=== PATIENT | female | born 2000 | race Caucasian/White ===

== ENCOUNTER 2018-02-14 22:28 | Emergency (ER) | payer OTHER ==
[~2018-02-14] VITALS: Ht 154.9 cm; Wt 40.8 kg
[2018-02-15 00:32] LABS: Basophils # (auto) 0 uL; Basophils % (auto) 0.1 % (0.0-2.0); Eosinophils # (auto) 0 uL; Hematocrit 33.2 % (36.0-46.0); Hemoglobin 10.8 g/dL (12.2-16.2); Lymphocytes # (auto) 1.4 uL; Lymphocytes % (auto) 21.9 % (10.0-50.0); Mean Corpuscular Hemoglobin 30.3 pg (28.0-32.0); Mean Corpuscular Hgb Conc. 32.5 g/dL (32.0-36.0); Mean Corpuscular Volume 93.2 fL (80.0-100.0); Monocytes # (auto) 0.4 uL; Monocytes % (auto) 5.5 % (0.0-12.0); Neutrophils # (auto) 4.7 uL; Neutrophils % (auto) 72.5 % (37.0-80.0); Nucleated Red Blood Cells % 0.1 %; Platelet Count (auto) 184 10^3/uL (140-450); Red Blood Cells 3.56 10^6/uL (4.0-5.20); Red Cell Distribution Width 16.5 % (11.8-14.3); White Blood Cell 6.5 10^3/uL (4.4-10.8)
[2018-02-15 00:48] LABS: Albumin 2.6 g/dL (3.4-5.0); BUN/Creatinine Ratio 28.8; Calcium 8.4 mg/dL (8.5-10.1); Potassium 3.6 mmol/L (3.5-5.1)
[2018-02-15 01:00] LABS: Bilirubin, Total 0.4 mg/dL (0.2-1.0); Total Protein 7.1 g/dL (6.4-8.2)
[2018-02-15] MEDS: LORazepam 2MG/ML-1ML VIAL ONE (01:34)
[2018-02-15] MEDS: LORazepam 2MG/ML-1ML VIAL IM ONE (01:36)
[2018-02-15 03:30] VITALS: BP 95/51
[2018-02-15] MEDS: LEVETIRACETAM 500 MG TAB PO ONE (04:40)
== END 2018-02-15 05:25 | disposition home or self-care (01) ==
LOC: EDBD 22:28 → ER 22:32
CPT/HCPCS: 36415 ×2; 70450 ×2; 80053 ×2; 85025 ×2; 96372 ×2; 99284; J2060

== ENCOUNTER 2018-02-16 21:57 | Emergency (ER) | payer OTHER ==
[~2018-02-16] VITALS: Ht 160 cm; Wt 39.9 kg
[2018-02-16 23:17] LABS: Basophils # (auto) 0 uL; Basophils % (auto) 0.1 % (0.0-2.0); Eosinophils # (auto) 0 uL; Hematocrit 33.2 % (36.0-46.0); Hemoglobin 10.9 g/dL (12.2-16.2); Lymphocytes # (auto) 0.8 uL; Lymphocytes % (auto) 14.5 % (10.0-50.0); Mean Corpuscular Hemoglobin 30.5 pg (28.0-32.0); Mean Corpuscular Hgb Conc. 32.7 g/dL (32.0-36.0); Mean Corpuscular Volume 93.1 fL (80.0-100.0); Monocytes # (auto) 0.2 uL; Monocytes % (auto) 4.7 % (0.0-12.0); Neutrophils # (auto) 4.3 uL; Neutrophils % (auto) 80.7 % (37.0-80.0); Nucleated Red Blood Cells % 0.2 %; Platelet Count (auto) 172 10^3/uL (140-450); Red Blood Cells 3.57 10^6/uL (4.0-5.20); Red Cell Distribution Width 16.5 % (11.8-14.3); White Blood Cell 5.3 10^3/uL (4.4-10.8)
[2018-02-16 23:40] LABS: Albumin 2.9 g/dL (3.4-5.0); BUN/Creatinine Ratio 35.5; Calcium 8.6 mg/dL (8.5-10.1); Potassium 3.1 mmol/L (3.5-5.1)
[2018-02-16 23:43] LABS: Bilirubin, Total 0.5 mg/dL (0.2-1.0); Total Protein 7.3 g/dL (6.4-8.2)
[2018-02-17] MEDS ORDERED: ONDANSETRON ODT 4 MG TAB PO ONE (01:00)
[2018-02-17] MEDS ORDERED: POTASSIUM CHL 20 Meq TABLET PO ONE (01:00)
[2018-02-17] MEDS ORDERED: POTASSIUM CHL 20MEQ/100ML 100 ML IV ONE (01:15)
[2018-02-17] MEDS ORDERED: LORazepam 2MG/ML-1ML VIAL IV ONE (01:15)
[2018-02-17] MEDS ORDERED: LEVETIRACETAM INJ 1,000 MG in D5W 5% 100 ML IV ONE (01:30)
[2018-02-17] MEDS ORDERED: LEVETIRACETAM 500 MG/5ML INJ IV ONE (01:39)
[2018-02-17 03:07] LABS: Albumin 2.5 g/dL (3.4-5.0); BUN/Creatinine Ratio 35.2
[2018-02-17 03:09] LABS: Bilirubin, Total 0.4 mg/dL (0.2-1.0); Total Protein 6.6 g/dL (6.4-8.2)
[2018-02-17 04:55] VITALS: BP 108/93
== END 2018-02-17 03:13 | disposition short-term general hospital (02) ==
LOC: ER 21:57
DX: R56.9 Unspecified convulsions (principal); F41.9 Anxiety disorder, unspecified; R41.82 Altered mental status, unspecified
CPT/HCPCS: 36415; 80053; 82140; 85025; 96365; 96375; 99285; J1953; J2060; J3480; J7030; J7060

== ENCOUNTER 2018-04-28 22:20 | Emergency (ER) | payer OTHER ==
[~2018-04-28] VITALS: Ht 160 cm; Wt 54.4 kg
[2018-04-28 22:31] VITALS: BP 120/79
[2018-04-28] MEDS ORDERED: EPINEPHrine HCL 1 MG/1 ML AMP SC ONE (22:45)
[2018-04-28] MEDS ORDERED: methylPREDNISolone SOD SUCC 125 MG/2 ML VL IV ONE (22:45)
[2018-04-28] MEDS ORDERED: diphenhdrAMINE HCL 50 MG/1 ML VL IV ONE (22:45)
[2018-04-29] MEDS ORDERED: PROMETHAZINE HCL 25 MG/ML 1ML IV ONE
[2018-04-29] MEDS ORDERED: FAMOTIDINE (10MG/ML) 2ML VL IV ONE
== END 2018-04-29 00:52 | disposition left against medical advice (07) ==
LOC: ER 22:26
DX: T78.40XA Allergy, unspecified, initial encounter (principal); T78.3XXA Angioneurotic edema, initial encounter; Z88.1 Allergy status to other antibiotic agents; X58.XXXA Exposure to other specified factors, initial encounter
CPT/HCPCS: 96372; 96374; 96375; 99283; J0171; J1200; J2550; J2930; J3490